=== PATIENT | male | born 1965 | race Two or more races ===

== ENCOUNTER 2016-10-05 12:41 | Emergency (ER) | payer SELFPAY ==
[~2016-10-05] VITALS: Ht 172.7 cm; Wt 66.2 kg
--- NOTE | 2016-10-05 13:59 | Diagnostic Imaging Report ---
Indication: Pain right ankle Comparison: None Findings: 3 views of the right ankle obtained. There is acute fracture involving the base of the fifth metatarsal. Soft tissue swelling noted in the hindfoot and lateral part ankle. Impression: Acute fifth metatarsal fracture
[2016-10-05] MEDS ORDERED: IBUPROFEN600 MG ORAL (14:14)
[2016-10-05 14:36] VITALS: BP 124/74
--- NOTE | 2016-10-05 22:16 | Emergency Room Report ---
History of Present Illness General Chief Complaint: Lower Extremity Injury Source: Patient Present Illness [facility] The patient is a 50-year-old male presenting with right foot pain. He states that he twisted the foot 2 days prior while walking. Pain has continued and is now 5/10 dull ache and does not radiate. It is felt primarily to the outside of the right foot. He denies previous injury to this area. He denies any numbness or tingling. He denies any other injury or symptoms Allergies: Coded Allergies: No Known Allergies (Unverified , 10/05/16) Patient History Past Medical History: see triage record Pertinent Family History: none Reviewed Nursing Documentation: PMH: Agreed, PSxH: Agreed Nursing Documentation-PMH Past Medical History: No Stated History Review of Systems All Other Systems: negative except mentioned in HPI Physical Exam Vital Signs Date Time Temp Pulse Resp B/P Pulse Ox O2 Delivery O2 Flow Rate FiO2 10/05/16 12:48 98.1 88 16 130/80 97 Room Air Sp02 EP Interpretation: reviewed, normal General Appearance: no apparent distress, alert, GCS 15, non-toxic Head: normocephalic, atraumatic Eyes: bilateral eye PERRL, bilateral eye normal inspection Musculoskeletal: normal range of motion, swelling - R lateral foot, tender - TTP over the R 5th MT Neurologic: alert, oriented x3, responsive, motor strength/tone normal, sensory intact, speech normal Psychiatric: judgement/insight normal, memory normal, mood/affect normal, no suicidal/homicidal ideation Skin: normal turgor, other - ecchymosis over the R 3rd and 4th digits Lymphatic: no adenopathy Procedures Splinting Splinting : Consent: Verbal Location: R leg Hand-Made Type: plaster Splint: poserior short Pre-Proc Neuro Vasc Exam: normal Post-Proc Neuro Vasc Exam: normal Patient Tolerated: Well Complications: None Medical Decision Making PA Attestation Dr. Hernández is my supervising physician. Patient management was discussed with my supervising physician Diagnostic Impression: Primary Impression: Metatarsal fracture Qualified Codes: S92.351A - Displaced fracture of fifth metatarsal bone, right foot, initial encounter for closed fracture ER Course The patient is a 50-year-old male presenting with right foot pain Ddx considered include but not limited to sprain/strain, fracture, contusion, among others Physical exam: No apparent distress R foot: There is tenderness to palpation and edema over the R 5th metatarsal. Full active range of motion of ankle and toes. Sensation intact to light touch. X-ray of the R ankle shows fracture of the 5th proximal MT R leg posterior splint is placed and the patient is provided crutches. ER precautions are given. Patient given prescription for Motrin and will follow up with primary care physician as well as orthopedic physician. Radiology disc given. Other X-Ray Diagnostic Results Other X-Ray Diagnostic Results : X-Ray ordered: R ankle # of Views/Limited Vs Complete: 3 View Indication: Pain EP Interpretation: Yes Interpretation: no dislocation, other - + STS and fracture of R 5th MT Interpreting ER Provider: Myself PA Scribe Text There is a fracture of the right proximal fifth metatarsal as well as soft tissue swelling. Last Vital Signs Date Time Temp Pulse Resp B/P Pulse Ox O2 Delivery O2 Flow Rate FiO2 10/05/16 14:36 81 17 124/74 98 Room Air 10/05/16 12:48 98.1 Status: improved Disposition: HOME, SELF-CARE Condition: Improved Scripts Ibuprofen* (MOTRIN*) 600 Mg Tablet 600 MG ORAL Q8H Y for For Pain, #30 TAB 0 Refills Prov: CHRIS VILLAR 10/05/16 Patient Instructions: Metatarsal Fracture Additional Instructions: I discussed my findings with the patient. All questions and concerns have been answered. Treatment and medication compliance have been addressed. I advised the patient that they need to follow up with PMD in 3-5 days. Return to ED if pain remains or worsens, numbness or tingling occurs, new rash is noticed, fever is noticed, or if needed for any reason. Patient verbalized understanding of discharge instructions. CHRIS VILLAR Oct 05, 2016 22:16
== END 2016-10-05 14:25 | disposition home or self-care (01) ==
LOC: EMR 13:20
DX: S92.351A Displaced fracture of fifth metatarsal bone, right foot, initial encounter for closed fracture (principal); X50.9XXA Other and unspecified overexertion or strenuous movements or postures, initial encounter; Y93.9 Activity, unspecified; Y92.9 Unspecified place or not applicable
CPT/HCPCS: 29515; 99283